=== PATIENT | male | born 1965 | race Caucasian/White ===

== ENCOUNTER 2020-01-26 05:54 | Emergency (ER) | payer OTHER ==
[~2020-01-26] VITALS: Ht 175.3 cm; Wt 113.0 kg
[2020-01-26 05:59] VITALS: BP 156/86
[2020-01-26] MEDS ORDERED: TETRACAINE 0.5% OPHTH SOLUTION 4ML BOTTLE. OD ONE (06:15)
[2020-01-26] MEDS ORDERED: FLUORESCEIN OPHTH TEST STRIP. ONE (06:27)
[2020-01-26] MEDS ORDERED: FLUORESCEIN OPHTH TEST STRIP. OS ONE (06:45)
[2020-01-26] MEDS ORDERED: TOBR5DRO2 OS (07:33)
--- NOTE | 2020-01-26 07:33 | PHYS DOC ---
Past Medical History Past Medical History: No Pertinent History Additional Past Medical Histor: back pain; crush injury of right hand Past Surgical History: No Surgical History Additional Past Surgical Histo: back fusion; skin graft on right hand Smoking Status: Never Smoker Alcohol Use: None Drug Use: None General Adult EDM: Chief Complaint: EYE PROBLEMS HPI: HPI: 54-year-old male who has no significant past medical history, presents to the ED with complaints of painful left eye swelling with foreign body sensation that started around 4 AM this morning while sleeping. Patient states his eyelid is closed shut and is having difficulties opening in it. Patient is not employed. No exposure to welding, or metal foreign objects. Denies any blunt trauma to the eye or any chemical/burn exposure. Does not wear contact lenses or glasses. Unsure of his baseline vision. Review of Systems: Review of Systems: Constitutional: Denies fever or chills. [] Eyes: Denies change in visual acuity. [] HENT: Denies nasal congestion or sore throat. [] Respiratory: Denies cough or shortness of breath. [] no hemoptysis Cardiovascular: Denies chest pain or edema. [] no syncope GI: Denies abdominal pain, nausea, vomiting, bloody stools or diarrhea. [] : Denies dysuria. [] or hematuria Musculoskeletal: Denies back pain or joint pain. [] Integument: Denies rash. [] Neurologic: Denies headache, focal weakness or sensory changes. [] Endocrine: Denies polyuria or polydipsia. [] Lymphatic: Denies swollen glands. [] Psychiatric: Denies depression or anxiety. [] Heart Score: Risk Factors: Risk Factors: DM, Current or recent (<one month) smoker, HTN, HLP, family history of CAD, obesity. Risk Scores: Score 0 - 3: 2.5% MACE over next 6 weeks - Discharge Home Score 4 - 6: 20.3% MACE over next 6 weeks - Admit for Clinical Observation Score 7 - 10: 72.7% MACE over next 6 weeks - Early Invasive Strategies Current Medications: Current Medications Medications (Trade) Dose Ordered Sig/Sebastián Start Time Stop Time Status Last Admin Dose Admin Fluorescein Sodium (Ful-Ayaka) 1 strip 1X ONCE 01/26/20 06:45 01/26/20 06:47 DC 01/26/20 06:45 1 STRIP Tetracaine HCl (Tetracaine) 1 drop 1X ONCE 01/26/20 06:15 01/26/20 06:16 DC 01/26/20 06:43 1 DROP Allergies: Allergies: Allergies Coded Allergies Type Severity Reaction Last Updated Verified No Known Drug Allergies 11/26/13 No Physical Exam: PE: Constitutional: Well developed, well nourished, non-toxic appearance. [] HENT: Normocephalic, atraumatic, bilateral external ears normal, oropharynx moist, no oral exudates, nose normal. [] Eyes: PERRLA, EOMI, right upper and lower conjunctiva very edematous and swollen, 20/70 in his left eye, right upper eyelid edematous and swollen shut, clear watery discharge, no ciliary flush, no photophobia, no conjunctival injection, fluorescein exam well-tolerated -possible scant fluorescein uptake over middle 6 o'clock position with no William sign, no dendritic lesions, no erythema of the eyelids, no redness or erythema of the conjunctiva, no corneal haziness, no obvious fb - suspect the sensation is related to the conjunctival swelling that's full and abutting the cornea Neck: Normal range of motion, supple, Cardiovascular:S1 and S2 present Lungs & Thorax: Speaking in full sentences, bilateral equal chest rise Skin: Warm, dry, no erythema, no rash. [] Back: No tenderness, Extremities: No tenderness, no cyanosis, no clubbing, ROM intact, no edema. [] Neurologic: Alert and oriented X 3, normal motor function, normal sensory function, no focal deficits noted. [] Psychologic: Affect normal, judgement normal, mood normal. [] Current Patient Data: Labs: Laboratory Tests Test 01/26/20 06:49 Glucose (Fingerstick) 139 mg/dL (70-99) H Vital Signs: Vital Signs Date Time Temp Pulse Resp B/P (MAP) Pulse Ox O2 Delivery O2 Flow Rate FiO2 01/26/20 05:59 97.4 61 18 156/86 (109) 96 Room Air 97.4 EKG: EKG: [] Radiology/Procedures: Radiology/Procedures: [] Course & Med Decision Making: Course & Med Decision Making Pertinent Labs and Imaging studies reviewed. (See chart for details) COVID-19 CRITERIA: The patient was evaluated during the global COVID-19 p andemic, and that diagnosis was suspected/considered upon their initial presentation. Their evaluation, treatment and testing was consistent with current guidelines for patients who present with complaints or symptoms that may be related to COVID-19. Concern for chemosis of left eye done to evaluate and left upper eyelid swelling. No obvious FB on pe. Spoke with cardiology Dr. Pineda who reports conjunctivitis is a possible early presentation of COVID-19 -thus conjunctivitis patient's or not being seen in ophthalmology clinics. COVID test sent. Recommends TobraDex 4 times daily and cold compresses. Will add augmentin to cover for periorbital cellulitis. Strict ED return precautions were given. Encouraged urgent outpatient follow-up with PMD and ophthalmology once symptoms resolve. Life-threatening processes were considered but are low suspicion at this time, given history and physical exam. Pt was educated on all prescription medications and adverse effects. All patient's questions were answered and pt was stable at time of discharge. Life-threatening differential includes acute angle-closure glaucoma, uveitis, corneal vision, foreign body, globe rupture, episcleritis, corneal ulcer, hyphema or empyema, orbital cellulitis, orbital hematoma, lens dislocation or orbital wall fracture. I spoken with the patient and her caregivers. I explained the patient's condition, diagnoses and treatment plan based on the information available to me at this time. I have answered the patient and her caregiver's questions and addressed any concerns. The patient and her caregivers have a good understanding of patient's diagnosis, condition and treatment plan as can be expected at this point. Vital signs have been stable. Patient's condition is stable and appropriate for discharge from the emergency department. Patient will pursue further outpatient evaluation with primary care physician or other designated or consulting physician as outlined in the discharge instructions. The patient and/or caregivers are agreeable to this plan of care and follow-up instructions have been explained in detail. The patient and/or caregivers have received these instructions in written form and have expressed an understanding of the discharge instructions. The patient and/or caregivers are aware that any significant change of condition or worsening of symptoms should prompt immediate return to this or the closest emergency department or call to 911. Tree Disclaimer: Tree Disclaimer: This electronic medical record was generated, in whole or in part, using a voice recognition dictation system. Departure Departure Impression: Primary Impression: Chemosis of left conjunctiva Additional Impression: Periorbital cellulitis of left eye Disposition: HOME, SELF-CARE Condition: STABLE Referrals: AIDAN VELAZCO MD (PCP) Patient Instructions: Allergic Conjunctivitis, Periorbital Cellulitis Additional Instructions: RETURN TO ED IMMEDIATELY IF EYE BECOMES SENSITIVE TO LIGHT, PAIN WORSENS OR CHANGES, YOUR EYE BECOMES RED OR YOU HAVE ANY VISION LOSS. Ophthalmology -once symptoms clear [facility] Address: [address] [place] [address] Scripts Amoxicillin/Potassium Clav (AUGMENTIN 875-125 TABLET) 1 Each Tablet 1 TAB PO Q12HR, #20 TAB Prov: BLUE TEMPLETON DO 01/26/20 Tobramycin/Dexamethasone (TOBRADEX EYE DROPS) 5 Ml Drops.susp 1 DROP OS QID, #5 ML Prov: BLUE TEMPLETON DO 01/26/20 Justicifation of Admission Dx: Justifications for Admission: Justification of Admission Dx: N/A BLUE TEMPLETON DO Jan 26, 2020 07:33
[2020-01-26] MEDS ORDERED: AMOX1TAB61 PO (07:37)
--- NOTE | 2020-01-27 09:04 | NUR ---
IP: Informed pt of negative COVID results. Pt verbalized understanding.
== END 2020-01-26 08:15 | disposition home or self-care (01) ==
LOC: ER 05:54
DX: H11.422 Conjunctival edema, left eye (principal); L03.213 Periorbital cellulitis; Z20.828 Contact with and (suspected) exposure to other viral communicable diseases
CPT/HCPCS: 82962; 99283; U0003